=== PATIENT | male | born 1955 | race Caucasian/White ===

== ENCOUNTER 2017-02-10 13:51 | Emergency (ER) | payer OTHER ==
[~2017-02-10] VITALS: Ht 175.3 cm; Wt 95.5 kg
[2017-02-10 14:20] VITALS: TEMP 98.2
[2017-02-10] MEDS ORDERED: COUMADIN 22.5 MG/TAB PO (15:05)
[2017-02-10] MEDS ORDERED: COUMADIN 5MG5 MG/TAB PO (15:06)
[2017-02-10 15:27] LABS: BASO % 0.6 % (0.0-2.0); EOS # 0.1 (0.0-0.7); EOS % 0.7 % (0-4.0); GRAN # 4.2 (1.4-6.5); GRAN % 58.4 % (42.2-75.2); HEMATOCRIT 40.2 % (42.0-52.0); HEMOGLOBIN 13.8 g/dl (13.5-18.0); LYMPH # 2.1 (1.2-3.4); LYMPH % 30.1 % (20.0-51.0); MEAN CELL VOLUME 86 fl (80.0-100.0); MEAN CORPUSCULAR HEMOGLOBIN 30 pg (27.0-31.0); MEAN CORPUSCULAR HGB CONC 34 g/dl (33.0-37.0); MEAN PLATELET VOLUME 9.8 fl (7.4-10.4); MONO # 0.7 (0.1-0.6); MONO % 9.9 % (1.7-9.3); PLATELET COUNT 308 K/mm3 (130-400); RED BLOOD COUNT 4.67 M/mm3 (4.20-5.60); REDCELL DISTRIBUTION WIDTH-CV 12.1 % (11.5-14.5); WHITE BLOOD COUNT 7.1 K/mm3 (4.8-10.8)
[2017-02-10 15:36] LABS: INR 5.9 (0.8-3.0); PROTHROMBIN TIME 69.7 SECONDS (9.7-12.8)
[2017-02-10 15:40] LABS: CALCIUM 10.3 mg/dL (8.4-10.2); CREATININE, serum 1.47 mg/dL (0.66-1.25); POTASSIUM 4.3 mmol/L (3.4-5.0)
[2017-02-10 16:03] VITALS: BP 126/75
[2017-02-10 16:33] LABS: URINE COLOR Amber
[2017-02-10 16:34] LABS: PH 5 (5-8); URINE APPEARANCE Cloudy; URINE BILIRUBIN Negative (NEGATIVE); URINE BLOOD 3+ (NEGATIVE); URINE GLUCOSE Negative (NEGATIVE); URINE KETONE Negative (NEGATIVE); URINE RBC >50 /hpf; URINE UROBILINOGEN Negative (NEGATIVE)
[2017-02-10 16:35] LABS: SQUAMOUS EPITHELIAL None Seen /hpf; URINE BACTERIA Moderate /hpf
[2017-02-10] MEDS ORDERED: CIPRO 250MG TA250 MG PO (16:47)
[2017-02-10 17:01] VITALS: PULSE 74
== END 2017-02-10 17:01 | disposition home or self-care (01) ==
LOC: COL.ER 13:51
PROVIDERS: Emergency Medicine
DX: R31.9 Hematuria, unspecified (principal); R79.1 Abnormal coagulation profile; Z79.01 Long term (current) use of anticoagulants